=== PATIENT | female | born 2000 | race Caucasian/White ===

== ENCOUNTER 2019-03-20 19:10 | Inpatient (IN) | payer OTHER ==
[2019-03-20] MEDS ORDERED: hydrALAzine 20 MG INJ IV (20:30)
[2019-03-20] MEDS ORDERED: morphine 2 MG INJ IV (20:30)
[2019-03-20] MEDS ORDERED: ACETAMINOPHEN 325 MG TAB PO (20:30)
[2019-03-20] MEDS: SOD CHLORIDE 0.9% 1,000 ML IV (22:21)
[2019-03-20 22:35] LABS: ADD MAN DIFF? NO
[2019-03-20 22:36] LABS: BASOPHILS % 0.2 % (0.0-2.0); EOSINOPHILS # 0.1 10^3/ul (0.0-0.5); HEMATOCRIT 39.3 % (37.0-47.0); HEMOGLOBIN 12.8 g/dl (12.0-16.0); LYMPHOCYTES # 2.4 10^3/ul (0.8-2.9); LYMPHOCYTES % 18.5 % (18.0-55.0); MEAN CORPUSCULAR HEMOGLOBIN 29.8 pg (29.0-33.0); MEAN CORPUSCULAR HGB CONC 32.6 g/dl (32.0-37.0); MEAN CORPUSCULAR VOLUME 91.4 fl (72.0-104.0); MEAN PLATELET VOLUME 8.8 fl (7.4-10.4); MONOCYTE # 1.1 10^3/ul (0.3-0.9); MONOCYTES % 8.7 % (0.0-13.0); NEUTROPHILS % 71.3 % (30.0-74.0); PLATELET COUNT 393 10^3/UL (140-415); RED CELL DISTRIBUTION WIDTH 13.7 % (11.5-14.5)
[2019-03-20 22:36] LABS: WHITE BLOOD COUNT 12.7 10^3/ul (4.8-10.8)
[2019-03-20 22:55] LABS: ALANINE AMINOTRANSFERASE 157 IU/L (13-69); ALBUMIN 3.6 g/dl (3.3-4.9); ALKALINE PHOSPHATASE 77 IU/L (42-121); ANION GAP 9 (5-13); ASPARTATE AMINO TRANSFERASE 36 IU/L (15-46); BILIRUBIN,INDIRECT 0.6 mg/dl (0-1.1); BILIRUBIN,TOTAL 0.6 mg/dl (0.2-1.3); BLOOD UREA NITROGEN 7 mg/dl (7-20); CALCIUM 8.8 mg/dl (8.4-10.2); CARBON DIOXIDE 26 mmol/L (21-31); CHLORIDE 103 mmol/L (97-110); CREATININE 0.63 mg/dl (0.44-1.00); Estimated GFR > 60 mL/min (>60); GLUCOSE 85 mg/dl (70-220); LIPASE 929 U/L (23-300); POTASSIUM 3.7 mmol/L (3.5-5.1); SODIUM 138 mmol/L (135-144); TOTAL PROTEIN 6.3 g/dl (6.1-8.1)
[2019-03-20] MEDS ORDERED: DOCUSATE SODIUM 100 MG CAP PO (23:30)
[2019-03-21] MEDS: SOD CHLORIDE 0.9% 1,000 ML IV ×3 (05:10→21:42)
[2019-03-21 05:42] LABS: ADD MAN DIFF? NO
[2019-03-21 05:48] LABS: BASOPHIL # 0.1 10^3/ul (0.0-0.1); BASOPHILS % 0.5 % (0.0-2.0); EOSINOPHILS # 0.2 10^3/ul (0.0-0.5); EOSINOPHILS % 2.4 % (0.0-7.0); HEMATOCRIT 37.8 % (37.0-47.0); LYMPHOCYTES # 3.3 10^3/ul (0.8-2.9); LYMPHOCYTES % 32.4 % (18.0-55.0); MEAN CORPUSCULAR HEMOGLOBIN 29.1 pg (29.0-33.0); MEAN CORPUSCULAR HGB CONC 31.7 g/dl (32.0-37.0); MEAN CORPUSCULAR VOLUME 91.7 fl (72.0-104.0); MONOCYTE # 0.9 10^3/ul (0.3-0.9); MONOCYTES % 9.3 % (0.0-13.0); NEUTROPHIL # 5.5 10^3/ul (1.6-7.5); NEUTROPHILS % 55.1 % (30.0-74.0); PLATELET COUNT 359 10^3/UL (140-415); RED BLOOD COUNT 4.12 10^6/ul (4.20-5.40)
[2019-03-21 06:00] LABS: HEMOGLOBIN A1C 5.3 % (0-5.9)
[2019-03-21 06:25] LABS: ALANINE AMINOTRANSFERASE 133 IU/L (13-69); ALBUMIN/GLOBULIN RATIO 1.25; ALKALINE PHOSPHATASE 70 IU/L (42-121); ANION GAP 7 (5-13); ASPARTATE AMINO TRANSFERASE 29 IU/L (15-46); BILIRUBIN,INDIRECT 0.5 mg/dl (0-1.1); BILIRUBIN,TOTAL 0.5 mg/dl (0.2-1.3); BLOOD UREA NITROGEN 8 mg/dl (7-20); CALCIUM 8.8 mg/dl (8.4-10.2); CARBON DIOXIDE 26 mmol/L (21-31); CHLORIDE 105 mmol/L (97-110); CHOL/HDL RATIO 3.7 RATIO; CHOLESTEROL 140 mg/dl (85-185); CREATININE 0.62 mg/dl (0.44-1.00); Estimated GFR > 60 mL/min (>60); GLUCOSE 65 mg/dl (70-220); HDL CHOLESTEROL 37 mg/dl (33-83); LDL CHOLESTEROL,CALCULATED 86 mg/dl; LIPASE 758 U/L (23-300); POTASSIUM 4.1 mmol/L (3.5-5.1); SODIUM 138 mmol/L (135-144); TOTAL PROTEIN 5.4 g/dl (6.1-8.1); TRIGLYCERIDES 86 mg/dl (0-149)
[2019-03-21] MEDS: ONDANSETRON 4 MG INJ IV (09:25)
[2019-03-22] MEDS: SOD CHLORIDE 0.9% 1,000 ML IV ×2 (05:48→15:29)
[2019-03-22 05:58] LABS: LIPASE 277 U/L (23-300)
[2019-03-23] MEDS: SOD CHLORIDE 0.9% 1,000 ML IV (01:54)
[2019-03-23 05:16] LABS: ADD MAN DIFF? NO
[2019-03-23 05:24] LABS: BASOPHILS % 0.5 % (0.0-2.0); EOSINOPHILS # 0.3 10^3/ul (0.0-0.5); EOSINOPHILS % 3.9 % (0.0-7.0); HEMATOCRIT 37.5 % (37.0-47.0); HEMOGLOBIN 12.1 g/dl (12.0-16.0); LYMPHOCYTES # 3.5 10^3/ul (0.8-2.9); LYMPHOCYTES % 43.6 % (18.0-55.0); MEAN CORPUSCULAR HEMOGLOBIN 29.7 pg (29.0-33.0); MEAN CORPUSCULAR HGB CONC 32.3 g/dl (32.0-37.0); MEAN CORPUSCULAR VOLUME 91.9 fl (72.0-104.0); MEAN PLATELET VOLUME 9.1 fl (7.4-10.4); MONOCYTE # 0.6 10^3/ul (0.3-0.9); MONOCYTES % 7.2 % (0.0-13.0); NEUTROPHIL # 3.5 10^3/ul (1.6-7.5); NEUTROPHILS % 44.7 % (30.0-74.0); PLATELET COUNT 397 10^3/UL (140-415); RED BLOOD COUNT 4.08 10^6/ul (4.20-5.40); RED CELL DISTRIBUTION WIDTH 13.2 % (11.5-14.5)
[2019-03-23 05:24] LABS: WHITE BLOOD COUNT 7.9 10^3/ul (4.8-10.8)
[2019-03-23 05:51] LABS: ALANINE AMINOTRANSFERASE 89 IU/L (13-69); ALBUMIN 3.3 g/dl (3.3-4.9); ALKALINE PHOSPHATASE 62 IU/L (42-121); ASPARTATE AMINO TRANSFERASE 24 IU/L (15-46); BILIRUBIN,INDIRECT 0.4 mg/dl (0-1.1); BILIRUBIN,TOTAL 0.4 mg/dl (0.2-1.3); TOTAL PROTEIN 5.9 g/dl (6.1-8.1)
[2019-03-23 05:56] LABS: ANION GAP 9 (5-13); BLOOD UREA NITROGEN 6 mg/dl (7-20); CALCIUM 8.9 mg/dl (8.4-10.2); CARBON DIOXIDE 20 mmol/L (21-31); CHLORIDE 108 mmol/L (97-110); CREATININE 0.59 mg/dl (0.44-1.00); Estimated GFR > 60 mL/min (>60); POTASSIUM 4.4 mmol/L (3.5-5.1); SODIUM 137 mmol/L (135-144)
[2019-03-23 06:41] LABS: GLUCOSE 50 mg/dl (70-220)
[2019-03-23] MEDS: DEXTROSE 50% 50 ML SYRINGE IV (07:16)
[2019-03-23] MEDS: DEXTROSE 5%-0.45% NACL 1,000 ML IV (11:15)
[2019-03-23] MEDS ORDERED: NEOSTIGMINE 3 MG/3 ML SYRINGE (13:50)
[2019-03-23] MEDS ORDERED: LIDOCAINE 2% (SDV) 5 ML INJ (13:50)
[2019-03-23] MEDS ORDERED: GLYCOPYRROLATE 0.4 MG INJ (13:50)
[2019-03-23] MEDS ORDERED: PROPOFOL 20 ML (13:50)
[2019-03-23] MEDS ORDERED: SUCCINYLCHOLINE CHLORIDE 100 MG/5 ML SYG IV (13:50)
[2019-03-23] MEDS ORDERED: ROCURONIUM 50 MG INJ (13:50)
[2019-03-23] MEDS ORDERED: MEPERIDINE 100 MG INJ (13:52)
[2019-03-23] MEDS ORDERED: CEFAZOLIN 1 GM INJ (14:14)
[2019-03-23] MEDS: LIDOCAINE 1% (MPF) 30 ML INJ INJ (14:25)
[2019-03-23] MEDS: BUPIVACAINE 0.5%/EPI (SDV) 30 ML INJ (14:25)
[2019-03-23] MEDS ORDERED: METOCLOPRAMIDE 10 MG INJ (14:28)
[2019-03-23] MEDS ORDERED: ONDANSETRON 4 MG INJ (14:28)
[2019-03-23] MEDS ORDERED: MEPERIDINE 25 MG INJ (15:15)
[2019-03-23] MEDS ORDERED: HYDROmorphONE 0.5 MG/0.5 ML SYG IV (15:30)
[2019-03-23] MEDS ORDERED: HYDROmorphONE 1 MG/5 ML IV SYRINGE IV (15:30)
[2019-03-23] MEDS ORDERED: MIDAZOLAM 1 MG/ML 2 ML INJ IV (15:30)
[2019-03-23] MEDS ORDERED: METOCLOPRAMIDE 10 MG INJ IV (15:30)
[2019-03-23] MEDS ORDERED: DIPHENHYDRAMINE 50 MG INJ IV ×2 (15:30)
[2019-03-23] MEDS ORDERED: ACETAMINOPHEN 325 MG TAB PO (15:30)
[2019-03-23] MEDS ORDERED: ONDANSETRON 4 MG INJ IV (15:30)
[2019-03-23] MEDS ORDERED: OXYCODONE/ACETAMINOPHEN (5/325) TAB PO ×2 (15:30)
[2019-03-23] MEDS ORDERED: DIPHENHYDRAMINE 25 MG CAP PO (15:30)
[2019-03-23] MEDS ORDERED: FENTAnyl 50 MCG/ML VIAL IV ×3 (15:30)
[2019-03-23] MEDS ORDERED: IBUPROFEN 600 MG TAB PO (15:30)
[2019-03-23] MEDS: MEPERIDINE 25 MG INJ IV (15:33)
[2019-03-23] MEDS: ONDANSETRON 4 MG INJ IV ×2 (15:38→23:19)
[2019-03-23] MEDS: HYDROmorphONE 1 MG/5 ML IV SYRINGE IV ×2 (15:38→15:55)
[2019-03-23] MEDS: D5W-0.45 NACL + KCL 20 MEQ 1,000 ML IV (16:39)
[2019-03-23] MEDS: KETOROLAC 15 MG INJ IV (18:57)
[2019-03-24] MEDS: HYDROCODONE/APAP (5/325) TAB PO (04:18)
[2019-03-24 05:16] LABS: ADD MAN DIFF? NO
[2019-03-24 05:31] LABS: WHITE BLOOD COUNT 10.3 10^3/ul (4.8-10.8)
[2019-03-24 05:31] LABS: BASOPHILS % 0.3 % (0.0-2.0); EOSINOPHILS # 0.1 10^3/ul (0.0-0.5); EOSINOPHILS % 0.5 % (0.0-7.0); HEMATOCRIT 38.9 % (37.0-47.0); HEMOGLOBIN 12.5 g/dl (12.0-16.0); LYMPHOCYTES % 19.1 % (18.0-55.0); MEAN CORPUSCULAR HEMOGLOBIN 29.3 pg (29.0-33.0); MEAN CORPUSCULAR HGB CONC 32.1 g/dl (32.0-37.0); MEAN CORPUSCULAR VOLUME 91.1 fl (72.0-104.0); MEAN PLATELET VOLUME 9.1 fl (7.4-10.4); MONOCYTES % 9.2 % (0.0-13.0); NEUTROPHIL # 7.3 10^3/ul (1.6-7.5); NEUTROPHILS % 70.7 % (30.0-74.0); PLATELET COUNT 490 10^3/UL (140-415); RED BLOOD COUNT 4.27 10^6/ul (4.20-5.40); RED CELL DISTRIBUTION WIDTH 13.4 % (11.5-14.5)
[2019-03-24 05:40] LABS: ALANINE AMINOTRANSFERASE 78 IU/L (13-69); ALBUMIN 3.7 g/dl (3.3-4.9); ALBUMIN/GLOBULIN RATIO 1.19; ALKALINE PHOSPHATASE 65 IU/L (42-121); ANION GAP 9 (5-13); ASPARTATE AMINO TRANSFERASE 32 IU/L (15-46); BILIRUBIN,INDIRECT 0.4 mg/dl (0-1.1); BILIRUBIN,TOTAL 0.4 mg/dl (0.2-1.3); CALCIUM 8.7 mg/dl (8.4-10.2); CARBON DIOXIDE 24 mmol/L (21-31); CHLORIDE 104 mmol/L (97-110); CREATININE 0.65 mg/dl (0.44-1.00); Estimated GFR > 60 mL/min (>60); GLUCOSE 170 mg/dl (70-220); POTASSIUM 4.4 mmol/L (3.5-5.1); SODIUM 137 mmol/L (135-144); TOTAL PROTEIN 6.8 g/dl (6.1-8.1)
[2019-03-24 05:41] LABS: BLOOD UREA NITROGEN < 2 mg/dl (7-20)
[2019-03-24] MEDS: D5W-0.45 NACL + KCL 20 MEQ 1,000 ML IV ×2 (06:17→12:44)
[2019-03-24] MEDS: KETOROLAC 15 MG INJ IV ×2 (06:17→14:11)
[2019-03-24] MEDS: DEXTROSE 5%-0.45% NACL 1,000 ML IV ×2 (07:45→12:44)
== END 2019-03-24 15:20 | disposition home or self-care (01) | DRG 419 ==
LOC: MS1 19:10
PROVIDERS: Internal Medicine
PROC: 0FT44ZZ Resection of Gallbladder, Percutaneous Endoscopic Approach (ICD-10-PCS; principal; 2019-03-23 13:54)
PROC: BF10YZZ Fluoroscopy of Bile Ducts using Other Contrast (ICD-10-PCS; 2019-03-23 13:54)
DX: K85.10 Biliary acute pancreatitis without necrosis or infection (principal); K80.20 Calculus of gallbladder without cholecystitis without obstruction
CPT/HCPCS: 74181; 80048; 80053; 80061; 80076; 82962; 83036; 83690; 84443; 84703; 85025; 88304